=== PATIENT | female | born 1930 | race Caucasian/White ===

== ENCOUNTER → 2017-12-13 | Day surgery (SDC) | payer OTHER, MEDICARE ==
[~2017-12-13] VITALS: Ht 170.2 cm; Wt 70.3 kg
[~2017-12-13] MED LIST: ASPIRIN EC81 M1 PO; ATORVASTATIN CA40 M1 PO; BENICAR40 M1 PO; LABETALOL HCL300 M1 PO; LASIX40 M1 PO; METFORMIN HCL500 M2; METOPROLOL TART50 M1 PO; POTASSIUM CHLO20 ME2 PO
[2017-12-13 06:32] LABS: ABSOLUTE BASOPHIL COUNT 0 /CUMM (0.0-0.2); ABSOLUTE EOSINOPHIL COUNT 0.2 /CUMM (0.0-0.7); ABSOLUTE GRANULOCYTE CT 3.8 /CUMM (1.4-6.5); ABSOLUTE LYMPH COUNT 0.7 /CUMM (1.2-3.4); ABSOLUTE MONOCYTE COUNT 0.4 /CUMM (0.10-0.60); BASOPHIL % 0.3 % (0.0-2.0); EOSINOPHIL % 3.4 % (0-5); GRANULOCYTE % 76.1 % (42.2-75.2); HEMATOCRIT 38.8 % (37-47); MEAN CORPUSCULAR HGB CONC 33.4 G/DL (33.0-37.0); MEAN CORPUSCULAR VOLUME 98.6 FL (81.0-99.0); MEAN PLATELET VOLUME 7.6 FL (7.4-10.4); PLATELET COUNT 124 /CUMM (130-400); RBC DISTRIBUTION WIDTH 15.9 % (11.5-14.5); RED BLOOD CELL CT 3.93 /CUMM (4.20-5.40)
--- NOTE | 2017-12-13 08:43 | Operative Report ---
Operative/Inv Procedure Report Surgery Date: 12/13/17 Name of Procedure: transanal excision of the rectal polyps and excision of the rectal mucosal prolapse Pre-Operative Diagnosis: rectal polyps and mucosal rectal prolapse Post-Operative Diagnosis: same Estimated Blood Loss: n/a Surgeon/Iron Carrier: Amada Parker MD Anesthesia: none Operative/Procedure Note Note: Procedure cancelled due to patient's rapid afib. Patient remained hemodynamically stable, was moved to PACU. Cardiology and Medicine consults were called. Family was made aware. Discharge Disposition: per Cardiology and Medicine
--- NOTE | 2017-12-13 10:08 | Cons- Medical ---
Dutch Cross MD 12/13/17 1002: General Information and HPI Consulting Request Date of Consult: 12/13/17 Requested By: Amada Parker MD Reason for Consult: For evaluation, if patient can be safely discharged to home. Source of Information: patient, family, old records Exam Limitations: no limitations History of Present Illness: Patient is an 87-year-old female who was here for transanal excision of rectal polyp with excision of rectal mucosal prolapse.The procedure was deferred as she went ot AF with RVR,and moved to the PACU.We were called to give advise regarding safe discharge. According to the patient she has history of aortic valve replacement in 2011 was on anticoagulant. She dont know exactly how long she had chronic atrial fibrillation.She do not know exactly the date but she knows that she was on anticoagulant which was stopped in August 2017 when she found to have severe anemia secondary to GI bleed and needed blood transfusion.She was kept on aspirin. She is undergoing regular checkup with her brazing machine feeder every month and last checkup was done around 2 weeks ago, which was normal. She stopped aspirin 3 days ago and Lasix since last 2 days. At her baseline she can walk without a walker but she feels short of breath after walking 10-15 steps and she need to stop because of shortness of breath.She does not use salt in the diet though she does not control fluid intake. She has baseline bilateral lower leg edema which does not increase since last couple of months.She said that she gained weight around 4lb in last 3 months. Past medical history - Hypertension Hyperlipidemia Diabetes History of aortic valve replacement -bioprosthetic aortic valve 2011, not on anticoagulation secondary to GI bleed, currently on aspirin History of acute diastolic heart failure (2016) History of chronic anemia 2017, needed blood transfusion (August 2017) History of chronic atrial fibrillation(2016) Surgical history -history of cholecystectomy, hysterectomy, bilateral salpingo- oophorectomy, history of aortic valve replacement. Personal history -lives alone with cats and dogs, can walk without walker, denies alcohol, smoking, illicit drug abuse. Allergies/Medications Allergies: Coded Allergies: codeine (N/V 12/12/17) Home Med List: Aspirin (Ecotrin*) 81 MG TABLET. 1 TAB PO DAILY CARDIAC (Reported) Atorvastatin Calcium 40 MG TABLET 1 TAB PO DAILY CHOLESTEROL (Reported) Furosemide (Lasix) 40 MG TABLET 1 TAB PO DAILY CARDIAC (Reported) Labetalol HCl 300 MG TABLET 1 TAB PO BID CARDIAC (Reported) Metformin HCl (Metformin HCl ER) 500 MG TAB.ER.24 DM (Reported) Metoprolol Tartrate 50 MG TABLET 1 TAB PO BID CARDIAC (Reported) Olmesartan Medoxomil (Benicar) 40 MG TABLET 1 TAB PO DAILY CARDIAC (Reported) Potassium Chloride 20 MEQ TAB.ER.PRT 1 TAB PO DAILY SUPPLEMENT (Reported) Review of Systems Review of Systems Constitutional: Reports: no symptoms, weakness. Past History Medical History Blood Transfusion Hx: Yes Surgical History Surgical History: cholecystectomy, colon resection, hysterectomy, bilateral BSO Psychosocial History Smoking Status: Never Smoked Exam & Diagnostic Data Last 24 Hrs of Vital Signs/I&O Vital signs -pulse 94, blood pressure 157/94, SPO2 96% on room air. Physical Exam General Appearance: no apparent distress, alert, awake, comfortable, thin Head: atraumatic, normal appearance Eyes: Left: lid inflammation. Ears, Nose, Throat: dry mucouse membrane Respiratory: decreased air entry in the bases, mild crackles Cardiovascular: JVD, normal peripheral pulses, irregularly irregular Gastrointestinal: soft, non-tender, bladder palpable Extremities: bilateral lower leg edema, pulses were present Last 24 Hrs of Labs/Juan Ramon: Laboratory Tests 12/13/17 0622: Anion Gap 10, Estimated GFR 53 L, BUN/Creatinine Ratio 19.0, Glucose 141 H, Calcium 9.5, CBC w Diff NO MAN DIFF REQ, RBC 3.93 L, MCV 98.6, MCH 33.0 H, MCHC 33.4, RDW 15.9 H, MPV 7.6, Gran % 76.1 H, Lymphocytes % 13.0 L, Monocytes % 7.2, Eosinophils % 3.4, Basophils % 0.3, Absolute Granulocytes 3.8, Absolute Lymphocytes 0.7 L, Absolute Monocytes 0.4, Absolute Eosinophils 0.2, Absolute Basophils 0 Assessment/Plan Assessment/Plan Patient is an 87-year-old female who was here for transanal excision of rectal polyp with excision of rectal mucosal prolapse.The procedure was deferred as she went into AF with RVR,and moved to the PACU.We were called to give advise regarding safe discharge. Vital signs -pulse 94, blood pressure 157/94, SPO2 96% on room air. Physical exam -comfortable at rest, alert and oriented to time place and person, skin looks pale, oropharynx dry, neck -distended veins, no JVD, lungs bilateral decreased air entry in the lower lobes, heart murmur present, S1-S2 normal, abdomen distended, bladder palpable, extremities bilateral lower leg pitting edema. EKG showed -heart rate 101, atrial fibrillation, generalized T-wave inversion with borderline QRS complex enlargement. Blood workup showed -WBC 5.0, RBC 3.90, hemoglobin 13.0, MCV 98.6, MCH 33, platelet count 124, creatinine is at 76.5, no band cells, serum sodium 144, potassium 4.2, chloride 101, anion gap 10, BUN 19, creatinine 1.0, GFR 53, glucose 141,calcium 9.5 Patient was given 1 dose of metronidazole/cefazolin Assessment and plan - Patient is a 87-year-old female with past medical history of aortic valve replacement, chronic atrial fibrillation, history of CHF on Lasix, was here for minor procedure. She was taken to operative room and kept in the operative position afterwards she started having tachycardia in the range of 130-131. She was given injection metoprolol 5 mg and esmolol 100 mg. Afterwards her heart rate was stable but blood pressure remained elevated in the range of 157/94. On examination she was having bilateral decreased air entry though is not using any accessory muscles of breathing. We faxed the EKG to Dr. Valdivia. Discussed over the phone and according to him there is no any new changes in the EKG and patient is quite stable, since last couple of months.He was quite comfortable to send patient home and have her evaluated within a week of discharge.We did have opinion from the in house brazing machine feeder -according to Dr. Wells, we will give an extra dose of IV metoprolol 2.5 mg and watch further heart rate and blood pressure.If they are in acceptable range then we can discharge the patient safely. Currently patient heart rate was within 80-90. Plan - * If blood pressure and heart rate remain in acceptable range than we can discharge the patient safely. * We will resume all her cardiac medication as before. * We will advised her to see, her primary brazing machine feeder within next 7-[address] Lisa Buitrago. Problem List: 1. Atrial fibrillation Copies To: Rusty WEBSTER,Femi Consult Acknowledgment - Thank you for your consult request. Abdullahi WEBSTER,Lisa 12/13/17 1219: Assessment/Plan Consult Acknowledgment - Thank you for your consult request. Attending MD Review Statement Attending Statement Attending MD Statement: examined this patient, discuss w/resident/PA/SNACK BAR COOK, agreed w/resident/PA/SNACK BAR COOK, reviewed EMR data (avail), discussed with nursing, amended to note Attending Assessment/Plan: 87 y/o F with pmh sig for aortic valve replacement, chronic atrial fibrillation, history of diastolic CHF on Lasix, who came to one day surgery to have transanal excision of the rectal polyps and excision of the rectal mucosal prolapse. Procedure was aborted due to the fact that patient was found to be in slightly rapid atrial fibrillation. She had seen her brazing machine feeder on November 30 and was cleared for surgery. She does take beta cynthia at home. She did receive a couple of doses of beta cynthia in the PACU but heart rate remains above 100. Medical and cardiology consults were obtained to clear the patient for discharge home. Patient herself denies any chest pain, shortness of breath. She did complain of feeling palpitations and some jittery feeling at times from last few weeks. Currently she denies any feeling of palpitations. She has also been seen by brazing machine feeder Dr. Wells. Dr. Grimes has contacted patient's brazing machine feeder Dr. Ojeda. She had abnormal looking EKG but reviewing the previous EKG and after discussing with patient's own brazing machine feeder, we found that these EKG changes were not new. EKG shows atrial fibrillation with extensive T-wave inversions in multiple leads. But as mentioned, these changes were not new. After seen by Dr. Wells, patient did receive another dose of 2.5 of metoprolol. Currently her heart rate was running anywhere between 80s to 90s. Other vital signs are stable except blood pressure slightly on the higher side and 150s. on exam; aox3, nad. cv; s1,, s2, irregular, + murmur. resp; clear abd; soft, nt, bs+ ext; trace edema. Laboratory Tests 12/13 0622 Chemistry Sodium (137 - 145 mmol/L) 144 Potassium (3.5 - 5.1 mmol/L) 4.2 Chloride (98 - 107 mmol/L) 101 Carbon Dioxide (22 - 30 mmol/L) 33 H Anion Gap (5 - 16) 10 BUN (7 - 17 mg/dL) 19 H Creatinine (0.5 - 1.0 mg/dL) 1.0 Estimated GFR (>60 ml/min) 53 L BUN/Creatinine Ratio (7 - 25 %) 19.0 Glucose (65 - 99 mg/dL) 141 H Calcium (8.4 - 10.2 mg/dL) 9.5 Hematology CBC w Diff NO MAN DIFF REQ WBC (4.8 - 10.8 /CUMM) 5.0 RBC (4.20 - 5.40 /CUMM) 3.93 L Hgb (12.0 - 16.0 G/DL) 13.0 Hct (37 - 47 %) 38.8 MCV (81.0 - 99.0 FL) 98.6 MCH (27.0 - 31.0 PG) 33.0 H MCHC (33.0 - 37.0 G/DL) 33.4 RDW (11.5 - 14.5 %) 15.9 H Plt Count (130 - 400 /CUMM) 124 L MPV (7.4 - 10.4 FL) 7.6 Gran % (42.2 - 75.2 %) 76.1 H Lymphocytes % (20.5 - 51.1 %) 13.0 L Monocytes % (1.7 - 9.3 %) 7.2 Eosinophils % (0 - 5 %) 3.4 Basophils % (0.0 - 2.0 %) 0.3 Absolute Granulocytes (1.4 - 6.5 /CUMM) 3.8 Absolute Lymphocytes (1.2 - 3.4 /CUMM) 0.7 L Absolute Monocytes (0.10 - 0.60 /CUMM) 0.4 Absolute Eosinophils (0.0 - 0.7 /CUMM) 0.2 Absolute Basophils (0.0 - 0.2 /CUMM) 0 Assessment and recommendations: 87 y/o F with pmh sig for aortic valve replacement, chronic atrial fibrillation, history of diastolic CHF on Lasix, who came to one day surgery to have transanal excision of the rectal polyps and excision of the rectal mucosal prolapse. Procedure was aborted due to the fact that patient was found to be in slightly rapid atrial fibrillation. She had seen her brazing machine feeder on November 30 and was cleared for surgery. She does take beta cynthia at home. She did receive a couple of doses of beta cynthia in the PACU but heart rate remains above 100. Medical and cardiology consults were obtained to clear the patient for discharge home. At this point in lieu of the fact that EKG has no new changes. Heart rate is better controlled after receiving doses of beta cynthia. Patient has also been seen by brazing machine feeder Dr. Wells who also recommends no further workup and follow -up with patient's brazing machine feeder as an outpatient, we do feel that if patient's heart rate remains stable and blood pressure remained stable then she will be okay and medically stable for discharge home today. She should continue her home medications and should follow-up with her own brazing machine feeder. Further scheduling for this procedure will be up to patient's primary doctor, brazing machine feeder and surgeon. No new medications were recommended for her discharge home.
--- NOTE | 2017-12-13 11:45 | Cons- Cardiology ---
General Information and HPI Consulting Request Date of Consult: 12/13/17 Requested By: Amada Parker MD Reason for Consult: Atrial fibrillation with a rapid ventricular response. Source of Information: patient, family, old records Exam Limitations: no limitations History of Present Illness: Mrs. Chely Herrera is an 87-year-old female with a history of hypertension, dyslipidemia, diabetes mellitus, HFpEF, and suspected aortic stenosis for which she underwent a bioprosthetic (porcine) aortic valve replacement in 2011, chronic atrial fibrillation without anticoagulation, and rectal mucosal prolapse with rectal polyp who we were asked to evaluate following an aborted transanal excision of the rectal mucosal prolapse and polyp secondary to poorly controlled ventricular response rates to her atrial fibrillation. She has thus far received IV metoprolol 5 mg and esmolol 100 mg. According to the patient she had been on metoprolol 50 mg twice daily but had this cut back to 50 mg daily during a hospitalization in August 2017. She had also been on Eliquis (apixaban) but had this discontinued secondary to anemia without an obvious source found despite EGD, colonoscopy, etc. At present she is visiting with her daughter and is without complaints, but anxious for discharge. Allergies/Medications Allergies: Coded Allergies: codeine (N/V 12/12/17) Home Med List: Aspirin (Ecotrin*) 81 MG TABLET.DR 1 TAB PO DAILY CARDIAC (Reported) Atorvastatin Calcium 40 MG TABLET 1 TAB PO DAILY CHOLESTEROL (Reported) Furosemide (Lasix) 40 MG TABLET 1 TAB PO DAILY CARDIAC (Reported) Labetalol HCl 300 MG TABLET 1 TAB PO BID CARDIAC (Reported) Metformin HCl (Metformin HCl ER) 500 MG TAB.ER.24 DM (Reported) Metoprolol Tartrate 50 MG TABLET 1 TAB PO BID CARDIAC (Reported) Olmesartan Medoxomil (Benicar) 40 MG TABLET 1 TAB PO DAILY CARDIAC (Reported) Potassium Chloride 20 MEQ TAB.ER.PRT 1 TAB PO DAILY SUPPLEMENT (Reported) Review of Systems Review of Systems: A 14 point system review was obtained and was noncontributory, other than as above. Past History Medical History Blood Transfusion Hx: Yes Cardiovascular: AFIB, CHF, hypertension, hyperlipidemia, s/p AVR Gastrointestinal: rectal prolapse, rectal polyp Musculoskeletal: rheumatoid arthritis Endocrine: diabetes Surgical History Surgical History: cholecystectomy, hysterectomy Family History Family History Reviewed? reviewed/non-contributory Psychosocial History Smoking Status: Never Smoked Exam & Diagnostic Data Vital Signs and I&O Intake & Output 12/13 1600 12/13 0800 12/13 0000 12/12 1600 12/12 0800 12/12 0000 Intake Total Output Total Balance Patient 155 lb Weight Blood pressure 180/99 mmHg temperature 97.3 respiration 16 pulse 94 ( irregular) Physical Exam: Well-developed, well-nourished elderly female in no acute distress. Vital signs: See above. HEENT: Normocephalic, atraumatic, EOMI, moist mucous membranes. Neck: No JVD, no bruits. Lungs: Clear to auscultation bilaterally. Heart: S1, S2 with grade 2/6 systolic ejection type murmur best heard near the base. Abdomen: Soft, nontender, positive bowel sounds. Extremities: Trace bilateral lower extremity edema. Labs/Juan Ramon Results: Laboratory Tests 12/13 0622 Chemistry Sodium (137 - 145 mmol/L) 144 Potassium (3.5 - 5.1 mmol/L) 4.2 Chloride (98 - 107 mmol/L) 101 Carbon Dioxide (22 - 30 mmol/L) 33 H Anion Gap (5 - 16) 10 BUN (7 - 17 mg/dL) 19 H Creatinine (0.5 - 1.0 mg/dL) 1.0 Estimated GFR (>60 ml/min) 53 L BUN/Creatinine Ratio (7 - 25 %) 19.0 Glucose (65 - 99 mg/dL) 141 H Calcium (8.4 - 10.2 mg/dL) 9.5 Hematology CBC w Diff NO MAN DIFF REQ WBC (4.8 - 10.8 /CUMM) 5.0 RBC (4.20 - 5.40 /CUMM) 3.93 L Hgb (12.0 - 16.0 G/DL) 13.0 Hct (37 - 47 %) 38.8 MCV (81.0 - 99.0 FL) 98.6 MCH (27.0 - 31.0 PG) 33.0 H MCHC (33.0 - 37.0 G/DL) 33.4 RDW (11.5 - 14.5 %) 15.9 H Plt Count (130 - 400 /CUMM) 124 L MPV (7.4 - 10.4 FL) 7.6 Gran % (42.2 - 75.2 %) 76.1 H Lymphocytes % (20.5 - 51.1 %) 13.0 L Monocytes % (1.7 - 9.3 %) 7.2 Eosinophils % (0 - 5 %) 3.4 Basophils % (0.0 - 2.0 %) 0.3 Absolute Granulocytes (1.4 - 6.5 /CUMM) 3.8 Absolute Lymphocytes (1.2 - 3.4 /CUMM) 0.7 L Absolute Monocytes (0.10 - 0.60 /CUMM) 0.4 Absolute Eosinophils (0.0 - 0.7 /CUMM) 0.2 Absolute Basophils (0.0 - 0.2 /CUMM) 0 Diagnostic Data EKG Results 12/13/2017: Atrial fibrillation with a rapid ventricular response, leftward axis, abnormal precordial R wave progression leads V1-V2, cannot exclude old ASMI, and T-wave abnormalities in diffuse leads cannot exclude ischemia. Assessment/Plan Assessment/Plan [id number] w/ hx HTN, HLD, DM, HFpEF, bioprosthetic AVR (porcine) for suspected , and chronic AF w/o AC 2/2 transfusion requiring anemia w/o source discovered and aborted transanal excision of a rectal mucosal prolapse and polyp 2/2 poorly controlled ventricular response rates to her AF. Recommendations: * IV metoprolol 2.5 mg 1 to help control the ventricular response rate to her atrial fibrillation and her hypertension. * Continue to monitor in PACU until ventricular response rate and blood pressure are acceptable. * Discontinue to home on her present medical regimen. * Schedule appointment for near future with attending academic services coordinator (Dr. Ojeda). * Call with any questions and/or concerns at [phone]. Consult Acknowledgment - Thank you for your consult request. - Thank you for your consult request.
== END ==
LOC: SDA 01:30 → STS 07:00 → EDSTATUS 07:00
PROVIDERS: Surgery
DX: K62.1 Rectal polyp (principal); K62.3 Rectal prolapse; Z53.09 Procedure and treatment not carried out because of other contraindication; I48.91 Unspecified atrial fibrillation; Z79.01 Long term (current) use of anticoagulants; I25.10 Atherosclerotic heart disease of native coronary artery without angina pectoris; I10 Essential (primary) hypertension
CPT/HCPCS: 36415; 93005; 93010; J0690